=== PATIENT | male | born 1975 | race Caucasian/White ===

== ENCOUNTER 2020-10-23 12:35 | Emergency (ER) | payer OTHER ==
[2020-10-23 12:42] VITALS: BP 144/88; PULSE 86; TEMP 98; BMI 28.2
[2020-10-23] MEDS ORDERED: TETANUS AND DIPHTHERIA TOXOID 0.5 ML DISP.SYRIN IM ONE (13:17)
[2020-10-23] MEDS ORDERED: DIPHTH,PERTUSS(ACELL),TET 0.5 ML DISP.SYRIN IM ONE ×3 (13:29→13:42)
== END 2020-10-23 14:09 | disposition home or self-care (01) ==
LOC: JERFT 12:35
PROC: 0HQFXZZ Repair Right Hand Skin, External Approach (ICD-10-PCS; principal; 2020-10-23)
PROC: 3E0234Z Introduction of Serum, Toxoid and Vaccine into Muscle, Percutaneous Approach (ICD-10-PCS; 2020-10-23)
DX: S61.210A Laceration without foreign body of right index finger without damage to nail, initial encounter (principal)
CPT/HCPCS: 73130-TC-RT-FY; 90471; 90715; 99284-25

== ENCOUNTER 2020-10-27 12:58 | Emergency (ER) | payer OTHER ==
[2020-10-27 13:31] VITALS: BP 138/74; PULSE 88; TEMP 98; BMI 29.0
[2020-10-27] MEDS ORDERED: HALOPERIDOL LACTATE 5 MG/ML IM ONE (13:41)
[2020-10-27] MEDS ORDERED: LORazepam 2 MG TABLET PO ONE (13:44)
[2020-10-27] MEDS ORDERED: LORazepam 2 MG/ML SDV VIAL IM ONE (13:45)
[2020-10-27] MEDS ORDERED: LORazepam 1 MG TABLET ONE (13:49)
[2020-10-27] MEDS ORDERED: HALOPERIDOL LACTATE 5 MG/ML ONE (13:50)
[2020-10-27 15:01] LABS: BASO % 0.5 % (0-2.0); EOS % 2.2 % (0-4.5); HEMOGLOBIN 13.7 GM/dL (11.7-16.9); LYMPH % 16.9 % (8-40); MCHC 34.2 g/dl (32.0-35.9); MEAN CELL VOLUME 87.6 fl (80-96); MEAN PLT VOLUME 8.2 fl (7.5-11.1); MONO % 9.9 % (3.8-10.2); NEUT % 70.5 % (42.8-82.8); PLATELET COUNT 305 10^3/uL (134-434); RBC 4.57 M/mm3 (4.00-5.60); RDW 14.1 % (11.9-15.9); WHITE BLOOD COUNT 6.7 K/mm3 (4.0-10.0)
[2020-10-27 15:18] LABS: CHLORIDE 109 mmol/L (98-107); SODIUM 141 mmol/L (136-145)
[2020-10-27 15:20] LABS: ANION GAP 6 MMOL/L (8-16); BLOOD UREA NITROGEN 18.5 mg/dL (7-18); CALCIUM 9.6 mg/dL (8.5-10.1); CO2 26 mmol/L (21-32); GLUCOSE,RANDOM 92 mg/dL (74-106)
[2020-10-27 15:23] LABS: SGPT/ALT 31 U/L (13-61)
[2020-10-27 15:24] LABS: CREATININE 0.8 mg/dL (0.55-1.3); SGOT/AST 12 U/L (15-37)
[2020-10-27 15:25] LABS: BILIRUBIN,TOTAL 0.3 mg/dL (0.2-1)
[2020-10-27 15:26] LABS: ALK PHOS 72 U/L (45-117)
== END 2020-10-27 18:30 | disposition home or self-care (01) ==
LOC: JER 12:58
PROC: 3E023NZ Introduction of Analgesics, Hypnotics, Sedatives into Muscle, Percutaneous Approach (ICD-10-PCS; principal; 2020-10-27)
PROC: 3E023GC Introduction of Other Therapeutic Substance into Muscle, Percutaneous Approach (ICD-10-PCS; 2020-10-27)
DX: R45.851 Suicidal ideations (principal); R44.0 Auditory hallucinations
CPT/HCPCS: 36415; 80053; 80307; 83735; 85025; 93005; 93010; 99284-25; C9803; U0003; U0005

== ENCOUNTER 2021-05-10 14:43 | Emergency (ER) | payer OTHER ==
[2021-05-10 15:28] VITALS: BP 126/80; PULSE 68; TEMP 98.3; BMI 30.4
[2021-05-10] MEDS ORDERED: ACETAMINOPHEN 500 MG TABLET (FP) PO ONE (16:35)
[2021-05-10] MEDS ORDERED: LIDOCAINE 5% TOPICAL PATCH TP ONE (16:35)
[2021-05-10] MEDS ORDERED: ACETAMINOPHEN 325 MG TABLET (FP) ONE (17:01)
[2021-05-10] MEDS ORDERED: LIDOCAINE 5% TOPICAL PATCH ONE (17:01)
[2021-05-10 17:49] LABS: PH,URINE 5.5 (5.0-8.0); URINE APPEARANCE CLEAR; URINE BILIRUBIN NEGATIVE (NEGATIVE); URINE COLOR YELLOW; URINE GLUCOSE (UA) NEGATIVE (NEGATIVE); URINE KETONE NEGATIVE (NEGATIVE); URINE LEUK ESTERASE NEGATIVE (NEGATIVE); URINE NITRITE NEGATIVE (NEGATIVE); URINE PROTEIN NEGATIVE (NEGATIVE); URINE UROBILINOGEN 0.2 mg/dL (0.2-1.0)
[2021-05-10] MEDS ORDERED: LIDOCAINE PATCH REMOVAL MC SCH (22:00)
== END 2021-05-10 18:05 | disposition home or self-care (01) ==
LOC: JERFT 14:43
DX: S22.39XA Fracture of one rib, unspecified side, initial encounter for closed fracture (principal); W00.0XXA Fall on same level due to ice and snow, initial encounter
CPT/HCPCS: 71046-TC-FY; 71101-TC-LT-FY; 81003; 99283-25

== ENCOUNTER 2023-01-08 17:39 | Inpatient (IN) | payer OTHER ==
[2023-01-08 18:18] VITALS: BMI 27.1
[2023-01-08] MEDS ORDERED: diphenhydrAMINE HCL 25 MG CAPSULE (FP) PO ONE ×2 (19:21→19:35)
[2023-01-08] MEDS ORDERED: MELATONIN 5 MG TABLETS PO SCH (22:00)
[2023-01-08] MEDS ORDERED: NALOXONE HCL (KLOXXADO) 8 MG SPRAY NS PRN (22:17)
[2023-01-08] MEDS ORDERED: hydrOXYzine PAMOATE 25 MG CAPSULE (FP) PO PRN (22:17)
[2023-01-08] MEDS ORDERED: COLLOIDAL OATMEAL 1 BAR EACH TP PRN (22:17)
[2023-01-08] MEDS ORDERED: P-EPHED 60MG/TRIPROLIDI 2.5MG TABLET PO PRN (22:17)
[2023-01-08] MEDS ORDERED: AMMONIUM LACTATE 12% LOTION 225 GM BOTTLE TP PRN (22:17)
[2023-01-08] MEDS ORDERED: POLYETHYLENE GLYCOL (HEALTHYLAX) 3350 17 GM PACKET PO PRN (22:17)
[2023-01-08] MEDS ORDERED: BENZONATATE 200 MG CAPSULE PO PRN (22:17)
[2023-01-08] MEDS ORDERED: LOPERAMIDE HCL 2 MG CAPSULE PO PRN (22:17)
[2023-01-08] MEDS ORDERED: ACETAMINOPHEN 325 MG TABLET (FP) PO PRN (22:17)
[2023-01-08] MEDS ORDERED: BENZOCAINE/MENTHOL (CHLORASEPTIC ) LOZENGE MM PRN (22:17)
[2023-01-08] MEDS ORDERED: IBUPROFEN 600 MG TABLET (FP) PO PRN (22:17)
[2023-01-08] MEDS ORDERED: MAG HYDROX/AL HYDROX/SIMETH 30 ML UNIT-DOSE CUP PO PRN (22:17)
[2023-01-08] MEDS ORDERED: guaiFENesin 600 MG TABLET.ER (FP) PO PRN (22:17)
[2023-01-08] MEDS ORDERED: IBUPROFEN 400 MG TABLET (FP) PO PRN (22:17)
[2023-01-08] MEDS ORDERED: MAGNESIUM HYDROX 2400MG/30ML ORAL SUSPENSION 30 ML CUP PO PRN (22:17)
[2023-01-08] MEDS ORDERED: NALOXONE HCL 0.4 MG/ML VIAL IM PRN (22:17)
[2023-01-09] MEDS: PRENATAL VITAMINS W/ FOLIC ACID TABLET (FP) PO SCH (09:59)
[2023-01-09 10:10] LABS: PH,URINE 6.5 (5.0-8.0); URINE APPEARANCE CLEAR; URINE BILIRUBIN NEGATIVE (NEGATIVE); URINE COLOR YELLOW; URINE GLUCOSE (UA) NEGATIVE (NEGATIVE); URINE KETONE NEGATIVE (NEGATIVE); URINE LEUK ESTERASE NEGATIVE (NEGATIVE); URINE NITRITE NEGATIVE (NEGATIVE); URINE PROTEIN NEGATIVE (NEGATIVE); URINE UROBILINOGEN 0.2 mg/dL (0.2-1.0)
[2023-01-09 10:10] LABS: POTASSIUM 4.2 mmol/L (3.5-5.1)
[2023-01-09 10:14] LABS: HEMATOCRIT 38.7 % (35.4-49); HEMOGLOBIN 13.6 GM/dL (11.7-16.9); MCH 30.3 pg (25.7-33.7); MEAN CELL VOLUME 86.8 fl (80-96); MEAN PLT VOLUME 8.9 fl (7.5-11.1); PLATELET COUNT 302 10^3/uL (134-434); RBC 4.47 M/mm3 (4.00-5.60); WHITE BLOOD COUNT 7.8 K/mm3 (4.0-10.0)
[2023-01-09 10:24] LABS: CALCIUM 9.1 mg/dL (8.5-10.1)
[2023-01-09 10:25] LABS: ALBUMIN 3.5 g/dl (3.4-5.0); BLOOD UREA NITROGEN 19.2 mg/dL (7-18)
[2023-01-09 10:29] LABS: TOT PROT 6.2 g/dl (6.4-8.2)
[2023-01-09 10:30] LABS: BILIRUBIN,TOTAL 0.3 mg/dL (0.2-1)
[2023-01-09] MEDS: MELATONIN 5 MG TABLETS PO SCH (21:36)
[2023-01-09] MEDS: THIAMINE HCL 100 MG TABLET (FP) PO SCH (21:38)
[2023-01-10] MEDS: PRENATAL VITAMINS W/ FOLIC ACID TABLET (FP) PO SCH (10:45)
[2023-01-10] MEDS: MELATONIN 5 MG TABLETS PO SCH (21:06)
[2023-01-10] MEDS: THIAMINE HCL 100 MG TABLET (FP) PO SCH (21:06)
[2023-01-11] MEDS: PRENATAL VITAMINS W/ FOLIC ACID TABLET (FP) PO SCH (09:57)
[2023-01-11] MEDS: MELATONIN 5 MG TABLETS PO SCH (21:13)
[2023-01-11] MEDS: THIAMINE HCL 100 MG TABLET (FP) PO SCH (21:13)
[2023-01-11] MEDS: hydrOXYzine PAMOATE 25 MG CAPSULE (FP) PO PRN (21:14)
[2023-01-12] MEDS: PRENATAL VITAMINS W/ FOLIC ACID TABLET (FP) PO SCH (09:34)
[2023-01-12] MEDS: MELATONIN 5 MG TABLETS PO SCH (21:03)
[2023-01-12] MEDS: THIAMINE HCL 100 MG TABLET (FP) PO SCH (21:03)
[2023-01-12] MEDS: hydrOXYzine PAMOATE 25 MG CAPSULE (FP) PO PRN (21:03)
[2023-01-13] MEDS: PRENATAL VITAMINS W/ FOLIC ACID TABLET (FP) PO SCH (10:05)
[2023-01-13] MEDS: THIAMINE HCL 100 MG TABLET (FP) PO SCH (21:28)
[2023-01-13] MEDS: MELATONIN 5 MG TABLETS PO SCH (21:28)
[2023-01-13] MEDS ORDERED: SUVOREXANT 10 MG TABLET PO PRN (22:00)
[2023-01-14] MEDS: hydrOXYzine PAMOATE 25 MG CAPSULE (FP) PO PRN (00:19)
[2023-01-14] MEDS: PRENATAL VITAMINS W/ FOLIC ACID TABLET (FP) PO SCH (10:21)
[2023-01-14] MEDS: THIAMINE HCL 100 MG TABLET (FP) PO SCH (21:15)
[2023-01-14] MEDS: SUVOREXANT 20 MG TABLET PO PRN (21:15)
[2023-01-15] MEDS: hydrOXYzine PAMOATE 25 MG CAPSULE (FP) PO PRN (01:22)
[2023-01-15] MEDS: PRENATAL VITAMINS W/ FOLIC ACID TABLET (FP) PO SCH (10:26)
[2023-01-15] MEDS ORDERED: DICYCLOMINE HCL 10 MG CAPSULE PO PRN (15:38)
[2023-01-15] MEDS ORDERED: NALOXONE HCL 0.4 MG/ML VIAL IM PRN (15:38)
[2023-01-15] MEDS ORDERED: METHOCARBAMOL 500 MG TABLET PO PRN (15:38)
[2023-01-15] MEDS ORDERED: BENZONATATE 200 MG CAPSULE PO PRN (15:38)
[2023-01-15] MEDS ORDERED: ONDANSETRON *ODT* 4 MG TABLET SL PRN (15:38)
[2023-01-15] MEDS ORDERED: guaiFENesin 600 MG TABLET.ER (FP) PO PRN (15:38)
[2023-01-15] MEDS ORDERED: BUPRENORPHINE HCL 150 MCG FILM BC ONE (16:00)
[2023-01-15] MEDS: NICOTINE 21 MG/24 HOURS TOPICAL PATCH TD SCH (16:26)
[2023-01-15] MEDS: THIAMINE HCL 100 MG TABLET (FP) PO SCH (21:12)
[2023-01-15] MEDS: SUVOREXANT 20 MG TABLET PO PRN (21:13)
[2023-01-15] MEDS: BUPRENORPHINE HCL 150 MCG FILM BC SCH (21:13)
[2023-01-15] MEDS ORDERED: BUPRENORPHINE/NALOXONE 2 MG/0.5 MG FILM PACKET SL SCH (22:00)
[2023-01-16] MEDS: BUPRENORPHINE HCL 150 MCG FILM BC SCH (09:43)
[2023-01-16] MEDS: PRENATAL VITAMINS W/ FOLIC ACID TABLET (FP) PO SCH (09:43)
[2023-01-16] MEDS: NICOTINE 21 MG/24 HOURS TOPICAL PATCH TD SCH (09:44)
[2023-01-16] MEDS: SUVOREXANT 20 MG TABLET PO PRN (21:10)
[2023-01-16] MEDS: THIAMINE HCL 100 MG TABLET (FP) PO SCH (21:10)
[2023-01-16] MEDS: QUEtiapine FUMARATE 100 MG TABLET (FP) PO PRN (21:10)
[2023-01-17] MEDS ORDERED: BUPRENORPHINE HCL 150 MCG FILM BC SCH (10:00)
[2023-01-17] MEDS: PRENATAL VITAMINS W/ FOLIC ACID TABLET (FP) PO SCH (10:14)
[2023-01-17] MEDS: BUPRENORPHINE HCL 150 MCG, BUPRENORPHINE HCL 75 MCG BC SCH ×2 (10:15→21:09)
[2023-01-17] MEDS: NICOTINE 21 MG/24 HOURS TOPICAL PATCH TD SCH (10:15)
[2023-01-17] MEDS: QUEtiapine FUMARATE 100 MG TABLET (FP) PO PRN (21:08)
[2023-01-17] MEDS: THIAMINE HCL 100 MG TABLET (FP) PO SCH (21:08)
[2023-01-17] MEDS: SUVOREXANT 20 MG TABLET PO PRN (21:10)
[2023-01-18] MEDS: PRENATAL VITAMINS W/ FOLIC ACID TABLET (FP) PO SCH (09:36)
[2023-01-18] MEDS: BUPRENORPHINE HCL 450 MCG FILM BC SCH ×2 (09:36→21:04)
[2023-01-18] MEDS: NICOTINE 21 MG/24 HOURS TOPICAL PATCH TD SCH (09:37)
[2023-01-18] MEDS: QUEtiapine FUMARATE 100 MG TABLET (FP) PO PRN (21:03)
[2023-01-18] MEDS: THIAMINE HCL 100 MG TABLET (FP) PO SCH (21:03)
[2023-01-18] MEDS: SUVOREXANT 20 MG TABLET PO PRN (21:04)
[2023-01-19] MEDS: NICOTINE 21 MG/24 HOURS TOPICAL PATCH TD SCH (09:36)
[2023-01-19] MEDS: PRENATAL VITAMINS W/ FOLIC ACID TABLET (FP) PO SCH (09:36)
[2023-01-19] MEDS: BUPRENORPHINE/NALOXONE 2 MG/0.5 MG FILM PACKET SL SCH ×2 (09:37→21:28)
[2023-01-19] MEDS ORDERED: BUPRENORPHINE/NALOXONE 2 MG/0.5 MG FILM PACKET SL SCH (10:00)
[2023-01-19] MEDS: NICOTINE POLACRILEX 4 MG GUM BUC PRN ×2 (18:08→20:47)
[2023-01-19] MEDS: THIAMINE HCL 100 MG TABLET (FP) PO SCH (21:28)
[2023-01-19] MEDS: SUVOREXANT 20 MG TABLET PO PRN (21:28)
[2023-01-20] MEDS: hydrOXYzine PAMOATE 25 MG CAPSULE (FP) PO PRN ×2 (00:30→10:26)
[2023-01-20] MEDS: QUEtiapine FUMARATE 100 MG TABLET (FP) PO PRN ×2 (00:31→21:14)
[2023-01-20 06:39] VITALS: TEMP 97.5
[2023-01-20] MEDS: NICOTINE 21 MG/24 HOURS TOPICAL PATCH TD SCH (10:25)
[2023-01-20] MEDS: PRENATAL VITAMINS W/ FOLIC ACID TABLET (FP) PO SCH (10:25)
[2023-01-20] MEDS: BUPRENORPHINE/NALOXONE 2 MG/0.5 MG FILM PACKET SL SCH ×2 (10:26→21:15)
[2023-01-20] MEDS: NICOTINE POLACRILEX 4 MG GUM BUC PRN ×2 (13:06→18:34)
[2023-01-20] MEDS: THIAMINE HCL 100 MG TABLET (FP) PO SCH (21:13)
[2023-01-20] MEDS: SUVOREXANT 20 MG TABLET PO PRN (21:13)
[2023-01-21] MEDS: hydrOXYzine PAMOATE 25 MG CAPSULE (FP) PO PRN (03:26)
[2023-01-21 06:42] VITALS: BP 101/61; PULSE 65; RESP 18
[2023-01-21] MEDS: PRENATAL VITAMINS W/ FOLIC ACID TABLET (FP) PO SCH (10:27)
[2023-01-21] MEDS: BUPRENORPHINE/NALOXONE 2 MG/0.5 MG FILM PACKET SL SCH ×2 (10:27→21:21)
[2023-01-21] MEDS: NICOTINE 21 MG/24 HOURS TOPICAL PATCH TD SCH (10:27)
[2023-01-21] MEDS: SUVOREXANT 20 MG TABLET PO PRN (21:21)
[2023-01-21] MEDS: THIAMINE HCL 100 MG TABLET (FP) PO SCH (21:21)
[2023-01-21] MEDS: QUEtiapine FUMARATE 100 MG TABLET (FP) PO PRN (21:22)
[2023-01-21] MEDS: NICOTINE POLACRILEX 4 MG GUM BUC PRN (22:37)
== END 2023-01-22 01:25 | disposition short-term general hospital (02) | DRG 772 ==
LOC: YASAS 17:39 → Y3W 19:27
PROVIDERS: ADMIT Allergy & Immunology; ATTEND Psychiatry & Neurology Pain Medicine
PROC: HZ42ZZZ Group Counseling for Substance Abuse Treatment, Cognitive-Behavioral (ICD-10-PCS; principal; 2023-01-08)
DX: F14.20 Cocaine dependence, uncomplicated (principal); F11.20 Opioid dependence, uncomplicated; F17.210 Nicotine dependence, cigarettes, uncomplicated; F19.282 Other psychoactive substance dependence with psychoactive substance-induced sleep disorder; F19.24 Other psychoactive substance dependence with psychoactive substance-induced mood disorder; G47.00 Insomnia, unspecified
CPT/HCPCS: 36415; 80053; 81003; 85027; 86780; 87635

== ENCOUNTER 2023-04-20 14:52 | Inpatient (IN) | payer OTHER ==
[2023-04-20 15:32] VITALS: BMI 27.7
[2023-04-20] MEDS ORDERED: IBUPROFEN 400 MG TABLET (FP) PO PRN (19:47)
[2023-04-20] MEDS ORDERED: BENZOCAINE/MENTHOL (CHLORASEPTIC ) LOZENGE MM PRN (19:47)
[2023-04-20] MEDS ORDERED: IBUPROFEN 600 MG TABLET (FP) PO PRN (19:47)
[2023-04-20] MEDS ORDERED: MAG HYDROX/AL HYDROX/SIMETH 30 ML UNIT-DOSE CUP PO PRN (19:47)
[2023-04-20] MEDS ORDERED: BENZONATATE 200 MG CAPSULE PO PRN (19:47)
[2023-04-20] MEDS ORDERED: guaiFENesin 600 MG TABLET.ER (FP) PO PRN (19:47)
[2023-04-20] MEDS ORDERED: LOPERAMIDE HCL 2 MG CAPSULE PO PRN (19:47)
[2023-04-20] MEDS ORDERED: ACETAMINOPHEN 325 MG TABLET (FP) PO PRN (19:47)
[2023-04-20] MEDS ORDERED: hydrOXYzine PAMOATE 25 MG CAPSULE (FP) PO PRN (19:47)
[2023-04-20] MEDS ORDERED: P-EPHED 60MG/TRIPROLIDI 2.5MG TABLET PO PRN (19:47)
[2023-04-20] MEDS: THIAMINE HCL 100 MG TABLET (FP) PO SCH (21:09)
[2023-04-20] MEDS ORDERED: MELATONIN 5 MG TABLETS PO SCH (22:00)
[2023-04-21] MEDS: NICOTINE POLACRILEX 2 MG GUM BUC PRN (09:00)
[2023-04-21] MEDS ORDERED: hydrOXYzine PAMOATE 25 MG CAPSULE (FP) PO PRN (10:00)
[2023-04-21] MEDS: PRENATAL VITAMINS W/ FOLIC ACID TABLET (FP) PO SCH (10:22)
[2023-04-21] MEDS: BUPRENORPHINE/NALOXONE 4 MG/1 MG FILM PACKET SL SCH ×2 (10:22→21:22)
[2023-04-21] MEDS: ARIPiprazole 5 MG TABLET PO SCH (10:53)
[2023-04-21 11:41] LABS: POTASSIUM 4.1 mmol/L (3.5-5.1)
[2023-04-21 11:43] LABS: ALBUMIN 3.6 g/dl (3.4-5.0); CALCIUM 8.9 mg/dL (8.5-10.1)
[2023-04-21 11:44] LABS: HEMATOCRIT 37.7 % (35.4-49); HEMOGLOBIN 12.6 GM/dL (11.7-16.9); MCH 29.3 pg (25.7-33.7); MCHC 33.3 g/dl (32.0-35.9); MEAN CELL VOLUME 88.1 fl (80-96); MEAN PLT VOLUME 8.6 fl (7.5-11.1); PLATELET COUNT 309 10^3/uL (134-434); RBC 4.28 M/mm3 (4.00-5.60); RDW 13.8 % (11.9-15.9); WHITE BLOOD COUNT 7.2 K/mm3 (4.0-10.0)
[2023-04-21 11:48] LABS: BILIRUBIN,TOTAL 0.5 mg/dL (0.2-1); TOT PROT 6.5 g/dl (6.4-8.2)
[2023-04-21 12:15] LABS: SYPHILIS W/ RPR CONF NON-REACTIVE (NONREACTIVE)
[2023-04-21] MEDS: MIRTAZAPINE 15 MG TABLET (FP) PO SCH (21:21)
[2023-04-21] MEDS: THIAMINE HCL 100 MG TABLET (FP) PO SCH (21:21)
[2023-04-21] MEDS: SUVOREXANT 10 MG TABLET PO PRN (21:21)
[2023-04-22] MEDS: ARIPiprazole 5 MG TABLET PO SCH (10:14)
[2023-04-22] MEDS: BUPRENORPHINE/NALOXONE 4 MG/1 MG FILM PACKET SL SCH ×2 (10:14→21:05)
[2023-04-22] MEDS: PRENATAL VITAMINS W/ FOLIC ACID TABLET (FP) PO SCH (10:15)
[2023-04-22] MEDS: MIRTAZAPINE 15 MG TABLET (FP) PO SCH (21:04)
[2023-04-22] MEDS: SUVOREXANT 10 MG TABLET PO PRN (21:04)
[2023-04-22] MEDS: THIAMINE HCL 100 MG TABLET (FP) PO SCH (21:05)
[2023-04-23] MEDS: PRENATAL VITAMINS W/ FOLIC ACID TABLET (FP) PO SCH (10:05)
[2023-04-23] MEDS: ARIPiprazole 5 MG TABLET PO SCH (10:05)
[2023-04-23] MEDS: BUPRENORPHINE/NALOXONE 4 MG/1 MG FILM PACKET SL SCH ×2 (10:06→21:00)
[2023-04-23] MEDS: NICOTINE POLACRILEX 2 MG GUM BUC PRN ×2 (12:02→18:56)
[2023-04-23 13:35] LABS: PH,URINE 5.5 (5.0-8.0); URINE APPEARANCE CLEAR; URINE BILIRUBIN NEGATIVE (NEGATIVE); URINE COLOR YELLOW; URINE GLUCOSE (UA) NEGATIVE (NEGATIVE); URINE KETONE NEGATIVE (NEGATIVE); URINE LEUK ESTERASE NEGATIVE (NEGATIVE); URINE NITRITE NEGATIVE (NEGATIVE); URINE PROTEIN NEGATIVE (NEGATIVE); URINE UROBILINOGEN 0.2 mg/dL (0.2-1.0)
[2023-04-23] MEDS: MIRTAZAPINE 15 MG TABLET (FP) PO SCH (21:00)
[2023-04-23] MEDS: THIAMINE HCL 100 MG TABLET (FP) PO SCH (21:01)
[2023-04-23] MEDS: SUVOREXANT 10 MG TABLET PO PRN (21:23)
[2023-04-24] MEDS: BUPRENORPHINE/NALOXONE 4 MG/1 MG FILM PACKET SL SCH ×2 (10:17→21:07)
[2023-04-24] MEDS: PRENATAL VITAMINS W/ FOLIC ACID TABLET (FP) PO SCH (10:17)
[2023-04-24] MEDS: ARIPiprazole 5 MG TABLET PO SCH ×2 (10:20→11:10)
[2023-04-24] MEDS: NICOTINE POLACRILEX 2 MG GUM BUC PRN ×2 (14:24→18:34)
[2023-04-24] MEDS: MIRTAZAPINE 15 MG TABLET (FP) PO SCH (21:06)
[2023-04-24] MEDS: SUVOREXANT 10 MG TABLET PO PRN (21:06)
[2023-04-24] MEDS: THIAMINE HCL 100 MG TABLET (FP) PO SCH (21:06)
[2023-04-24] MEDS ORDERED: SUVOREXANT 10 MG TABLET PO PRN (22:00)
[2023-04-25] MEDS: NICOTINE POLACRILEX 2 MG GUM BUC PRN ×3 (05:58→18:44)
[2023-04-25] MEDS: BUPRENORPHINE/NALOXONE 4 MG/1 MG FILM PACKET SL SCH ×2 (09:43→21:21)
[2023-04-25] MEDS: ARIPiprazole 5 MG TABLET PO SCH (09:44)
[2023-04-25] MEDS: PRENATAL VITAMINS W/ FOLIC ACID TABLET (FP) PO SCH (09:44)
[2023-04-25] MEDS: SUVOREXANT 10 MG TABLET PO PRN (21:20)
[2023-04-25] MEDS: THIAMINE HCL 100 MG TABLET (FP) PO SCH (21:20)
[2023-04-25] MEDS: MIRTAZAPINE 15 MG TABLET (FP) PO SCH (21:20)
[2023-04-26] MEDS: PRENATAL VITAMINS W/ FOLIC ACID TABLET (FP) PO SCH (09:35)
[2023-04-26] MEDS: BUPRENORPHINE/NALOXONE 4 MG/1 MG FILM PACKET SL SCH ×2 (09:36→21:07)
[2023-04-26] MEDS: ARIPiprazole 5 MG TABLET PO SCH (09:36)
[2023-04-26] MEDS: NICOTINE POLACRILEX 2 MG GUM BUC PRN ×4 (09:39→21:11)
[2023-04-26] MEDS: COLLOIDAL OATMEAL 1 BAR EACH TP PRN (15:54)
[2023-04-26] MEDS: SUVOREXANT 10 MG TABLET PO PRN (21:06)
[2023-04-26] MEDS: MIRTAZAPINE 15 MG TABLET (FP) PO SCH (21:06)
[2023-04-26] MEDS: THIAMINE HCL 100 MG TABLET (FP) PO SCH (21:07)
[2023-04-27] MEDS: PRENATAL VITAMINS W/ FOLIC ACID TABLET (FP) PO SCH (09:53)
[2023-04-27] MEDS: BUPRENORPHINE/NALOXONE 4 MG/1 MG FILM PACKET SL SCH ×2 (09:54→21:06)
[2023-04-27] MEDS: ARIPiprazole 5 MG TABLET PO SCH (09:54)
[2023-04-27] MEDS: NICOTINE POLACRILEX 2 MG GUM BUC PRN ×4 (10:19→20:16)
[2023-04-27] MEDS: SUVOREXANT 10 MG TABLET PO PRN (21:05)
[2023-04-27] MEDS: THIAMINE HCL 100 MG TABLET (FP) PO SCH (21:06)
[2023-04-27] MEDS: MIRTAZAPINE 15 MG TABLET (FP) PO SCH (21:06)
[2023-04-28] MEDS: NICOTINE POLACRILEX 2 MG GUM BUC PRN ×4 (06:04→21:03)
[2023-04-28] MEDS: PRENATAL VITAMINS W/ FOLIC ACID TABLET (FP) PO SCH (10:15)
[2023-04-28] MEDS: ARIPiprazole 5 MG TABLET PO SCH (10:15)
[2023-04-28] MEDS: BUPRENORPHINE/NALOXONE 4 MG/1 MG FILM PACKET SL SCH ×2 (10:17→21:02)
[2023-04-28] MEDS: MIRTAZAPINE 15 MG TABLET (FP) PO SCH (21:02)
[2023-04-28] MEDS: THIAMINE HCL 100 MG TABLET (FP) PO SCH (21:02)
[2023-04-28] MEDS: SUVOREXANT 10 MG TABLET PO PRN (21:02)
[2023-04-29] MEDS: NICOTINE POLACRILEX 2 MG GUM BUC PRN ×2 (06:01→10:37)
[2023-04-29] MEDS: BUPRENORPHINE/NALOXONE 4 MG/1 MG FILM PACKET SL SCH (09:47)
[2023-04-29] MEDS: PRENATAL VITAMINS W/ FOLIC ACID TABLET (FP) PO SCH (09:47)
[2023-04-29] MEDS: ARIPiprazole 5 MG TABLET PO SCH (09:47)
[2023-04-29] MEDS ORDERED: NICOTINE POLACRILEX 2 MG GUM BC SCH (11:15)
[2023-04-29] MEDS ORDERED: DOCUSATE SODIUM 100 MG CAPSULE (FP) PO PRN (11:22)
[2023-04-29] MEDS: BISMUTH SUBSALICYLATE 262 MG/15 ML BTL PO SCH (13:13)
[2023-04-29] MEDS: MAGNESIUM HYDROX 2400MG/30ML ORAL SUSPENSION 30 ML CUP PO PRN (13:14)
[2023-04-29] MEDS: NICOTINE POLACRILEX 2 MG GUM BC PRN ×2 (16:22→20:44)
[2023-04-29] MEDS: THIAMINE HCL 100 MG TABLET (FP) PO SCH (21:15)
[2023-04-29] MEDS: MIRTAZAPINE 15 MG TABLET (FP) PO SCH (21:15)
[2023-04-29] MEDS: BUPRENORPHINE/NALOXONE 8 MG/2 MG FILM PACKET SL SCH (21:16)
[2023-04-30] MEDS: PRENATAL VITAMINS W/ FOLIC ACID TABLET (FP) PO SCH (09:58)
[2023-04-30] MEDS: ARIPiprazole 5 MG TABLET PO SCH (09:58)
[2023-04-30] MEDS: BUPRENORPHINE/NALOXONE 8 MG/2 MG FILM PACKET SL SCH ×2 (09:58→21:19)
[2023-04-30] MEDS: BISMUTH SUBSALICYLATE 262 MG/15 ML BTL PO SCH (09:59)
[2023-04-30] MEDS: MAGNESIUM HYDROX 2400MG/30ML ORAL SUSPENSION 30 ML CUP PO PRN (10:03)
[2023-04-30] MEDS: NICOTINE POLACRILEX 2 MG GUM BUC PRN ×2 (10:03→13:41)
[2023-04-30] MEDS: POLYETHYLENE GLYCOL (HEALTHYLAX) 3350 17 GM PACKET PO PRN (19:55)
[2023-04-30] MEDS: NICOTINE POLACRILEX 2 MG GUM BC PRN (19:56)
[2023-04-30] MEDS: MIRTAZAPINE 15 MG TABLET (FP) PO SCH (21:17)
[2023-04-30] MEDS: THIAMINE HCL 100 MG TABLET (FP) PO SCH (21:19)
[2023-05-01] MEDS: NICOTINE POLACRILEX 2 MG GUM BUC PRN ×4 (05:59→21:31)
[2023-05-01] MEDS: BISMUTH SUBSALICYLATE 262 MG/15 ML BTL PO SCH (09:55)
[2023-05-01] MEDS: BUPRENORPHINE/NALOXONE 8 MG/2 MG FILM PACKET SL SCH ×2 (09:55→21:30)
[2023-05-01] MEDS: ARIPiprazole 5 MG TABLET PO SCH (09:55)
[2023-05-01] MEDS: PRENATAL VITAMINS W/ FOLIC ACID TABLET (FP) PO SCH (09:55)
[2023-05-01] MEDS: NICOTINE POLACRILEX 2 MG GUM BC PRN (09:55)
[2023-05-01] MEDS: THIAMINE HCL 100 MG TABLET (FP) PO SCH (21:29)
[2023-05-01] MEDS: MIRTAZAPINE 15 MG TABLET (FP) PO SCH (21:29)
[2023-05-02] MEDS: NICOTINE POLACRILEX 2 MG GUM BUC PRN ×3 (03:19→20:42)
[2023-05-02] MEDS: NICOTINE POLACRILEX 2 MG GUM BC PRN ×2 (06:57→16:16)
[2023-05-02] MEDS: ARIPiprazole 5 MG TABLET PO SCH (10:10)
[2023-05-02] MEDS: BUPRENORPHINE/NALOXONE 8 MG/2 MG FILM PACKET SL SCH ×2 (10:11→21:05)
[2023-05-02] MEDS: BISMUTH SUBSALICYLATE 262 MG/15 ML BTL PO SCH (10:11)
[2023-05-02] MEDS: PRENATAL VITAMINS W/ FOLIC ACID TABLET (FP) PO SCH (10:11)
[2023-05-02] MEDS: DOCUSATE SODIUM 100 MG CAPSULE (FP) PO SCH (21:05)
[2023-05-02] MEDS: MIRTAZAPINE 15 MG TABLET (FP) PO SCH (21:05)
[2023-05-02] MEDS: THIAMINE HCL 100 MG TABLET (FP) PO SCH (21:05)
[2023-05-03] MEDS: NICOTINE POLACRILEX 2 MG GUM BUC PRN ×3 (06:05→21:19)
[2023-05-03] MEDS: POLYETHYLENE GLYCOL (HEALTHYLAX) 3350 17 GM PACKET PO PRN (06:05)
[2023-05-03] MEDS: BUPRENORPHINE/NALOXONE 8 MG/2 MG FILM PACKET SL SCH ×2 (09:33→21:19)
[2023-05-03] MEDS: ARIPiprazole 5 MG TABLET PO SCH (09:33)
[2023-05-03] MEDS: PRENATAL VITAMINS W/ FOLIC ACID TABLET (FP) PO SCH (09:33)
[2023-05-03] MEDS: DOCUSATE SODIUM 100 MG CAPSULE (FP) PO SCH ×2 (09:33→21:19)
[2023-05-03] MEDS: BISMUTH SUBSALICYLATE 262 MG/15 ML BTL PO SCH (09:34)
[2023-05-03] MEDS: NICOTINE POLACRILEX 2 MG GUM BC PRN (12:46)
[2023-05-03] MEDS: THIAMINE HCL 100 MG TABLET (FP) PO SCH (21:19)
[2023-05-03] MEDS: MIRTAZAPINE 15 MG TABLET (FP) PO SCH (21:19)
[2023-05-04] MEDS: NICOTINE POLACRILEX 2 MG GUM BUC PRN ×3 (06:22→13:34)
[2023-05-04] MEDS: ARIPiprazole 5 MG TABLET PO SCH (10:12)
[2023-05-04] MEDS: PRENATAL VITAMINS W/ FOLIC ACID TABLET (FP) PO SCH (10:12)
[2023-05-04] MEDS: BUPRENORPHINE/NALOXONE 8 MG/2 MG FILM PACKET SL SCH ×2 (10:13→21:28)
[2023-05-04] MEDS: BISMUTH SUBSALICYLATE 262 MG/15 ML BTL PO SCH (10:15)
[2023-05-04] MEDS: DOCUSATE SODIUM 100 MG CAPSULE (FP) PO SCH ×2 (10:15→21:28)
[2023-05-04] MEDS: NICOTINE POLACRILEX 2 MG GUM BC PRN ×2 (16:41→19:41)
[2023-05-04] MEDS: MIRTAZAPINE 15 MG TABLET (FP) PO SCH (21:28)
[2023-05-04] MEDS: THIAMINE HCL 100 MG TABLET (FP) PO SCH (22:45)
[2023-05-05] MEDS: POLYETHYLENE GLYCOL (HEALTHYLAX) 3350 17 GM PACKET PO PRN (06:04)
[2023-05-05] MEDS: NICOTINE POLACRILEX 2 MG GUM BUC PRN ×3 (06:05→13:25)
[2023-05-05] MEDS: BUPRENORPHINE/NALOXONE 8 MG/2 MG FILM PACKET SL SCH ×2 (10:14→21:05)
[2023-05-05] MEDS: BISMUTH SUBSALICYLATE 262 MG/15 ML BTL PO SCH (10:14)
[2023-05-05] MEDS: ARIPiprazole 5 MG TABLET PO SCH (10:14)
[2023-05-05] MEDS: DOCUSATE SODIUM 100 MG CAPSULE (FP) PO SCH ×2 (10:14→21:04)
[2023-05-05] MEDS: PRENATAL VITAMINS W/ FOLIC ACID TABLET (FP) PO SCH (10:15)
[2023-05-05] MEDS: NICOTINE POLACRILEX 2 MG GUM BC PRN (18:31)
[2023-05-05] MEDS: MIRTAZAPINE 15 MG TABLET (FP) PO SCH (21:04)
[2023-05-05] MEDS: THIAMINE HCL 100 MG TABLET (FP) PO SCH (21:06)
[2023-05-06] MEDS: NICOTINE POLACRILEX 2 MG GUM BUC PRN ×4 (06:05→16:55)
[2023-05-06] MEDS: DOCUSATE SODIUM 100 MG CAPSULE (FP) PO SCH ×2 (09:33→21:09)
[2023-05-06] MEDS: BISMUTH SUBSALICYLATE 262 MG/15 ML BTL PO SCH (09:33)
[2023-05-06] MEDS: PRENATAL VITAMINS W/ FOLIC ACID TABLET (FP) PO SCH (09:33)
[2023-05-06] MEDS: BUPRENORPHINE/NALOXONE 8 MG/2 MG FILM PACKET SL SCH ×2 (09:33→21:10)
[2023-05-06] MEDS: ARIPiprazole 5 MG TABLET PO SCH (09:33)
[2023-05-06] MEDS: MIRTAZAPINE 15 MG TABLET (FP) PO SCH (21:09)
[2023-05-06] MEDS: THIAMINE HCL 100 MG TABLET (FP) PO SCH (21:10)
[2023-05-07] MEDS: POLYETHYLENE GLYCOL (HEALTHYLAX) 3350 17 GM PACKET PO PRN (06:04)
[2023-05-07] MEDS: NICOTINE POLACRILEX 2 MG GUM BUC PRN ×3 (06:04→12:07)
[2023-05-07] MEDS: PRENATAL VITAMINS W/ FOLIC ACID TABLET (FP) PO SCH (09:28)
[2023-05-07] MEDS: BISMUTH SUBSALICYLATE 262 MG/15 ML BTL PO SCH (09:28)
[2023-05-07] MEDS: ARIPiprazole 5 MG TABLET PO SCH (09:28)
[2023-05-07] MEDS: DOCUSATE SODIUM 100 MG CAPSULE (FP) PO SCH ×2 (09:28→21:16)
[2023-05-07] MEDS: BUPRENORPHINE/NALOXONE 8 MG/2 MG FILM PACKET SL SCH ×2 (09:28→21:16)
[2023-05-07] MEDS: NICOTINE POLACRILEX 2 MG GUM BC PRN ×2 (16:58→21:16)
[2023-05-07] MEDS: MIRTAZAPINE 15 MG TABLET (FP) PO SCH (21:16)
[2023-05-07] MEDS: THIAMINE HCL 100 MG TABLET (FP) PO SCH (22:13)
[2023-05-08] MEDS: POLYETHYLENE GLYCOL (HEALTHYLAX) 3350 17 GM PACKET PO PRN (06:05)
[2023-05-08] MEDS: NICOTINE POLACRILEX 2 MG GUM BUC PRN ×6 (06:06→21:13)
[2023-05-08] MEDS: PRENATAL VITAMINS W/ FOLIC ACID TABLET (FP) PO SCH (09:34)
[2023-05-08] MEDS: BISMUTH SUBSALICYLATE 262 MG/15 ML BTL PO SCH (09:34)
[2023-05-08] MEDS: DOCUSATE SODIUM 100 MG CAPSULE (FP) PO SCH ×2 (09:34→21:12)
[2023-05-08] MEDS: ARIPiprazole 5 MG TABLET PO SCH (09:34)
[2023-05-08] MEDS: NICOTINE POLACRILEX 2 MG GUM BC PRN (09:35)
[2023-05-08] MEDS: BUPRENORPHINE/NALOXONE 8 MG/2 MG FILM PACKET SL SCH ×2 (09:35→21:12)
[2023-05-08] MEDS: THIAMINE HCL 100 MG TABLET (FP) PO SCH (21:12)
[2023-05-08] MEDS: MIRTAZAPINE 15 MG TABLET (FP) PO SCH (21:12)
[2023-05-09] MEDS: POLYETHYLENE GLYCOL (HEALTHYLAX) 3350 17 GM PACKET PO PRN (06:07)
[2023-05-09] MEDS: NICOTINE POLACRILEX 2 MG GUM BUC PRN ×6 (06:08→21:11)
[2023-05-09] MEDS: ARIPiprazole 5 MG TABLET PO SCH (09:56)
[2023-05-09] MEDS: PRENATAL VITAMINS W/ FOLIC ACID TABLET (FP) PO SCH (09:56)
[2023-05-09] MEDS: BUPRENORPHINE/NALOXONE 8 MG/2 MG FILM PACKET SL SCH ×2 (09:56→21:10)
[2023-05-09] MEDS: BISMUTH SUBSALICYLATE 262 MG/15 ML BTL PO SCH (09:57)
[2023-05-09] MEDS: DOCUSATE SODIUM 100 MG CAPSULE (FP) PO SCH ×2 (09:57→21:09)
[2023-05-09] MEDS: MIRTAZAPINE 15 MG TABLET (FP) PO SCH (21:09)
[2023-05-09] MEDS: THIAMINE HCL 100 MG TABLET (FP) PO SCH (21:09)
[2023-05-10] MEDS: POLYETHYLENE GLYCOL (HEALTHYLAX) 3350 17 GM PACKET PO PRN (06:13)
[2023-05-10] MEDS: NICOTINE POLACRILEX 2 MG GUM BUC PRN ×6 (06:14→21:31)
[2023-05-10] MEDS: PRENATAL VITAMINS W/ FOLIC ACID TABLET (FP) PO SCH (09:37)
[2023-05-10] MEDS: ARIPiprazole 5 MG TABLET PO SCH (09:37)
[2023-05-10] MEDS: BISMUTH SUBSALICYLATE 262 MG/15 ML BTL PO SCH (09:37)
[2023-05-10] MEDS: BUPRENORPHINE/NALOXONE 8 MG/2 MG FILM PACKET SL SCH ×2 (09:37→21:30)
[2023-05-10] MEDS: DOCUSATE SODIUM 100 MG CAPSULE (FP) PO SCH ×2 (09:37→21:30)
[2023-05-10] MEDS: COLLOIDAL OATMEAL 1 BAR EACH TP PRN (10:31)
[2023-05-10] MEDS: THIAMINE HCL 100 MG TABLET (FP) PO SCH (21:30)
[2023-05-10] MEDS: MIRTAZAPINE 15 MG TABLET (FP) PO SCH (21:30)
[2023-05-11] MEDS: NICOTINE POLACRILEX 2 MG GUM BUC PRN ×5 (06:21→21:44)
[2023-05-11] MEDS: POLYETHYLENE GLYCOL (HEALTHYLAX) 3350 17 GM PACKET PO PRN (06:21)
[2023-05-11] MEDS: BISMUTH SUBSALICYLATE 262 MG/15 ML BTL PO SCH (09:59)
[2023-05-11] MEDS: BUPRENORPHINE/NALOXONE 8 MG/2 MG FILM PACKET SL SCH ×2 (09:59→21:10)
[2023-05-11] MEDS: PRENATAL VITAMINS W/ FOLIC ACID TABLET (FP) PO SCH (09:59)
[2023-05-11] MEDS: ARIPiprazole 5 MG TABLET PO SCH (09:59)
[2023-05-11] MEDS: DOCUSATE SODIUM 100 MG CAPSULE (FP) PO SCH ×2 (09:59→21:11)
[2023-05-11] MEDS: MIRTAZAPINE 15 MG TABLET (FP) PO SCH (21:11)
[2023-05-11] MEDS: THIAMINE HCL 100 MG TABLET (FP) PO SCH (21:11)
[2023-05-12] MEDS: POLYETHYLENE GLYCOL (HEALTHYLAX) 3350 17 GM PACKET PO PRN (05:58)
[2023-05-12] MEDS: NICOTINE POLACRILEX 2 MG GUM BUC PRN ×5 (05:58→17:00)
[2023-05-12] MEDS: ARIPiprazole 5 MG TABLET PO SCH (09:47)
[2023-05-12] MEDS: DOCUSATE SODIUM 100 MG CAPSULE (FP) PO SCH ×2 (09:47→21:17)
[2023-05-12] MEDS: PRENATAL VITAMINS W/ FOLIC ACID TABLET (FP) PO SCH (09:47)
[2023-05-12] MEDS: BUPRENORPHINE/NALOXONE 8 MG/2 MG FILM PACKET SL SCH ×2 (09:47→21:18)
[2023-05-12] MEDS: BISMUTH SUBSALICYLATE 262 MG/15 ML BTL PO SCH (10:31)
[2023-05-12] MEDS: MIRTAZAPINE 15 MG TABLET (FP) PO SCH (21:17)
[2023-05-12] MEDS: THIAMINE HCL 100 MG TABLET (FP) PO SCH (21:17)
[2023-05-13] MEDS: NICOTINE POLACRILEX 2 MG GUM BUC PRN ×6 (05:59→21:14)
[2023-05-13] MEDS: POLYETHYLENE GLYCOL (HEALTHYLAX) 3350 17 GM PACKET PO PRN (05:59)
[2023-05-13 07:22] VITALS: TEMP 97.5
[2023-05-13] MEDS: ARIPiprazole 5 MG TABLET PO SCH (09:56)
[2023-05-13] MEDS: BISMUTH SUBSALICYLATE 262 MG/15 ML BTL PO SCH (09:56)
[2023-05-13] MEDS: BUPRENORPHINE/NALOXONE 8 MG/2 MG FILM PACKET SL SCH ×2 (09:56→21:13)
[2023-05-13] MEDS: PRENATAL VITAMINS W/ FOLIC ACID TABLET (FP) PO SCH (09:56)
[2023-05-13] MEDS: DOCUSATE SODIUM 100 MG CAPSULE (FP) PO SCH ×2 (09:57→21:12)
[2023-05-13] MEDS: MIRTAZAPINE 15 MG TABLET (FP) PO SCH (21:12)
[2023-05-13] MEDS: THIAMINE HCL 100 MG TABLET (FP) PO SCH (21:13)
[2023-05-14] MEDS: NICOTINE POLACRILEX 2 MG GUM BUC PRN ×5 (05:56→15:01)
[2023-05-14] MEDS: POLYETHYLENE GLYCOL (HEALTHYLAX) 3350 17 GM PACKET PO PRN (05:56)
[2023-05-14 09:26] VITALS: BP 124/72; PULSE 75; RESP 18
[2023-05-14] MEDS: BUPRENORPHINE/NALOXONE 8 MG/2 MG FILM PACKET SL SCH (09:41)
[2023-05-14] MEDS: BISMUTH SUBSALICYLATE 262 MG/15 ML BTL PO SCH (09:41)
[2023-05-14] MEDS: DOCUSATE SODIUM 100 MG CAPSULE (FP) PO SCH (09:41)
[2023-05-14] MEDS: ARIPiprazole 5 MG TABLET PO SCH (09:41)
[2023-05-14] MEDS: PRENATAL VITAMINS W/ FOLIC ACID TABLET (FP) PO SCH (09:44)
== END 2023-05-14 15:34 | disposition home or self-care (01) | DRG 772 ==
LOC: YASAS 14:52 → Y3W 20:02
PROVIDERS: ADMIT Allergy & Immunology; ATTEND Psychiatry & Neurology Pain Medicine
PROC: HZ42ZZZ Group Counseling for Substance Abuse Treatment, Cognitive-Behavioral (ICD-10-PCS; principal; 2023-04-20)
DX: F14.20 Cocaine dependence, uncomplicated (principal); F11.20 Opioid dependence, uncomplicated; F12.20 Cannabis dependence, uncomplicated; F17.210 Nicotine dependence, cigarettes, uncomplicated; F19.282 Other psychoactive substance dependence with psychoactive substance-induced sleep disorder; F19.24 Other psychoactive substance dependence with psychoactive substance-induced mood disorder; F20.9 Schizophrenia, unspecified; F32.A Depression, unspecified; Z86.59 Personal history of other mental and behavioral disorders
CPT/HCPCS: 36415; 80053; 81003; 82962; 85027; 86780; 86803; 87635

== ENCOUNTER 2023-07-24 15:33 | Inpatient (IN) | payer OTHER ==
[2023-07-24 17:17] VITALS: BMI 29.5
[2023-07-24] MEDS ORDERED: BACITRACIN 0.9 GM PACKET TP PRN (18:43)
[2023-07-24] MEDS ORDERED: MAG HYDROX/AL HYDROX/SIMETH 30 ML UNIT-DOSE CUP PO PRN (19:19)
[2023-07-24] MEDS ORDERED: guaiFENesin 600 MG TABLET.ER (FP) PO PRN (19:19)
[2023-07-24] MEDS ORDERED: POLYETHYLENE GLYCOL (HEALTHYLAX) 3350 17 GM PACKET PO PRN (19:19)
[2023-07-24] MEDS ORDERED: P-EPHED 60MG/TRIPROLIDI 2.5MG TABLET PO PRN (19:19)
[2023-07-24] MEDS ORDERED: ACETAMINOPHEN 325 MG TABLET (FP) PO PRN (19:19)
[2023-07-24] MEDS ORDERED: BENZOCAINE/MENTHOL (CHLORASEPTIC ) LOZENGE MM PRN (19:19)
[2023-07-24] MEDS ORDERED: BENZONATATE 200 MG CAPSULE PO PRN (19:19)
[2023-07-24] MEDS ORDERED: IBUPROFEN 400 MG TABLET (FP) PO PRN (19:19)
[2023-07-24] MEDS ORDERED: LOPERAMIDE HCL 2 MG CAPSULE PO PRN (19:19)
[2023-07-24] MEDS ORDERED: MAGNESIUM HYDROX 2400MG/30ML ORAL SUSPENSION 30 ML CUP PO PRN (19:19)
[2023-07-24] MEDS ORDERED: DOCUSATE SODIUM 100 MG CAPSULE (FP) PO PRN (19:19)
[2023-07-24] MEDS: THIAMINE HCL 100 MG TABLET (FP) PO SCH (21:19)
[2023-07-24] MEDS: MELATONIN 5 MG TABLETS PO SCH (21:19)
[2023-07-24] MEDS: NICOTINE POLACRILEX 2 MG GUM BUC PRN (21:20)
[2023-07-24] MEDS: MIRTAZAPINE 15 MG TABLET (FP) PO ONE (21:20)
[2023-07-25] MEDS: PRENATAL VITAMINS W/ FOLIC ACID TABLET (FP) PO SCH (10:17)
[2023-07-25 12:11] LABS: URINE APPEARANCE CLEAR; URINE BILIRUBIN NEGATIVE (NEGATIVE); URINE COLOR YELLOW; URINE GLUCOSE (UA) NEGATIVE (NEGATIVE); URINE KETONE NEGATIVE (NEGATIVE); URINE LEUK ESTERASE NEGATIVE (NEGATIVE); URINE NITRITE NEGATIVE (NEGATIVE); URINE PROTEIN NEGATIVE (NEGATIVE); URINE UROBILINOGEN 0.2 mg/dL (0.2-1.0)
[2023-07-25 12:11] LABS: HEMATOCRIT 37.4 % (35.4-49); HEMOGLOBIN 13.1 GM/dL (11.7-16.9); MCH 30.8 pg (25.7-33.7); MCHC 34.9 g/dl (32.0-35.9); MEAN CELL VOLUME 88.4 fl (80-96); MEAN PLT VOLUME 8.6 fl (7.5-11.1); PLATELET COUNT 274 10^3/uL (134-434); RBC 4.24 M/mm3 (4.00-5.60); WHITE BLOOD COUNT 6.5 K/mm3 (4.0-10.0)
[2023-07-25] MEDS: ARIPiprazole 5 MG TABLET PO SCH (12:11)
[2023-07-25 12:33] LABS: POTASSIUM 3.8 mmol/L (3.5-5.1)
[2023-07-25 12:39] LABS: ALBUMIN 3.4 g/dl (3.4-5.0); BLOOD UREA NITROGEN 17.6 mg/dL (7-18)
[2023-07-25 12:43] LABS: CREATININE 1.1 mg/dL (0.55-1.3); TOT PROT 6.3 g/dl (6.4-8.2)
[2023-07-25 12:45] LABS: BILIRUBIN,TOTAL 0.3 mg/dL (0.2-1)
[2023-07-25] MEDS: IBUPROFEN 600 MG TABLET (FP) PO PRN (16:28)
[2023-07-25 18:37] VITALS: BP 122/81; PULSE 70; RESP 18; TEMP 97.5
[2023-07-25] MEDS ORDERED: METHOCARBAMOL 750 MG TABLET PO PRN (18:39)
[2023-07-25] MEDS: METHOCARBAMOL 500 MG TABLET PO PRN (18:48)
[2023-07-25] MEDS: LIDOCAINE 5% TOPICAL PATCH TP SCH (18:48)
[2023-07-25] MEDS: LIDOCAINE PATCH REMOVAL MC SCH (21:21)
[2023-07-25] MEDS: SUVOREXANT 10 MG TABLET PO PRN (21:21)
[2023-07-25] MEDS: MIRTAZAPINE 15 MG TABLET (FP) PO SCH (21:21)
== END 2023-07-25 22:33 | disposition left against medical advice (07) | DRG 770 ==
LOC: YASAS 15:33 → Y3W 20:24
PROVIDERS: ADMIT Allergy & Immunology; ATTEND Psychiatry & Neurology Pain Medicine
PROC: HZ42ZZZ Group Counseling for Substance Abuse Treatment, Cognitive-Behavioral (ICD-10-PCS; principal; 2023-07-24)
DX: F14.10 Cocaine abuse, uncomplicated (principal); F12.20 Cannabis dependence, uncomplicated; F17.210 Nicotine dependence, cigarettes, uncomplicated; F19.282 Other psychoactive substance dependence with psychoactive substance-induced sleep disorder; F19.24 Other psychoactive substance dependence with psychoactive substance-induced mood disorder; F39 Unspecified mood [affective] disorder; M54.50 Low back pain, unspecified; G89.29 Other chronic pain; Z86.59 Personal history of other mental and behavioral disorders
CPT/HCPCS: 36415; 80053; 80305; 81003; 85027; 86780; 87635; 87811; 93005; 93010

== ENCOUNTER 2023-10-01 14:49 | Inpatient (IN) | payer OTHER ==
[2023-10-01 16:00] VITALS: BMI 32.0
[2023-10-01] MEDS ORDERED: DOCUSATE SODIUM 100 MG CAPSULE (FP) PO PRN (16:10)
[2023-10-01] MEDS ORDERED: guaiFENesin 600 MG TABLET.ER (FP) PO PRN (16:10)
[2023-10-01] MEDS ORDERED: POLYETHYLENE GLYCOL (HEALTHYLAX) 3350 17 GM PACKET PO PRN (16:10)
[2023-10-01] MEDS ORDERED: NALOXONE HCL (KLOXXADO) 8 MG SPRAY NS PRN (16:10)
[2023-10-01] MEDS ORDERED: NALOXONE HCL 0.4 MG/ML VIAL IM PRN (16:10)
[2023-10-01] MEDS ORDERED: IBUPROFEN 600 MG TABLET (FP) PO PRN (16:10)
[2023-10-01] MEDS ORDERED: MAGNESIUM HYDROX 2400MG/30ML ORAL SUSPENSION 30 ML CUP PO PRN (16:10)
[2023-10-01] MEDS ORDERED: BENZONATATE 200 MG CAPSULE PO PRN (16:10)
[2023-10-01] MEDS ORDERED: IBUPROFEN 400 MG TABLET (FP) PO PRN (16:10)
[2023-10-01] MEDS ORDERED: BENZOCAINE/MENTHOL (CHLORASEPTIC ) LOZENGE MM PRN (16:10)
[2023-10-01] MEDS: hydrOXYzine PAMOATE 25 MG CAPSULE (FP) PO PRN (21:35)
[2023-10-01] MEDS: THIAMINE 100 MG TABLET PO SCH (21:35)
[2023-10-01] MEDS: MELATONIN 5 MG TABLETS PO SCH (21:35)
[2023-10-02] MEDS: PRENATAL VITAMINS W/ FOLIC ACID TABLET (FP) PO SCH (10:02)
[2023-10-02 12:08] LABS: CHLORIDE 108 mmol/L (98-107); POTASSIUM 3.8 mmol/L (3.5-5.1); SODIUM 139 mmol/L (136-145)
[2023-10-02 12:14] LABS: HEMATOCRIT 43.8 % (35.4-49); HEMOGLOBIN 14.7 GM/dL (11.7-16.9); MCH 30.1 pg (25.7-33.7); MCHC 33.6 g/dl (32.0-35.9); MEAN CELL VOLUME 89.7 fl (80-96); MEAN PLT VOLUME 8.3 fl (7.5-11.1); PLATELET COUNT 332 10^3/uL (134-434); RBC 4.88 M/mm3 (4.00-5.60); RDW 13.9 % (11.9-15.9)
[2023-10-02 12:20] LABS: CALCIUM 9.6 mg/dL (8.5-10.1); SGPT/ALT 20 U/L (13-61)
[2023-10-02 12:21] LABS: ANION GAP 4 mmol/L (4-13); BLOOD UREA NITROGEN 19.5 mg/dL (7-18); CO2 27 mmol/L (21-32)
[2023-10-02 12:22] LABS: ALBUMIN 3.9 g/dl (3.4-5.0); BILIRUBIN,TOTAL 0.5 mg/dL (0.2-1); GLUCOSE,RANDOM 88 mg/dL (74-106)
[2023-10-02 12:24] LABS: SGOT/AST 17 U/L (15-37)
[2023-10-02 12:25] LABS: CREATININE 1.1 mg/dL (0.55-1.3)
[2023-10-02 12:26] LABS: TOT PROT 7.1 g/dl (6.4-8.2)
[2023-10-02 12:28] LABS: ALK PHOS 82 U/L (45-117)
[2023-10-02] MEDS: NICOTINE POLACRILEX 2 MG GUM BUC PRN (15:54)
[2023-10-03] MEDS: MIRTAZAPINE 15 MG TABLET (FP) PO SCH (21:24)
[2023-10-04] MEDS: MAG HYDROX/AL HYDROX/SIMETH 30 ML UNIT-DOSE CUP PO PRN (19:45)
[2023-10-05] MEDS: LOPERAMIDE HCL 2 MG CAPSULE PO PRN (20:29)
[2023-10-07] MEDS: DICYCLOMINE HCL 10 MG CAPSULE PO ONE (11:21)
[2023-10-07] MEDS: DIPHENOXYLATE 2.5/ATROPINE.025 1 COMBO TABLET PO ONE (11:21)
[2023-10-09] MEDS: SUVOREXANT 10 MG TABLET PO SCH (21:49)
[2023-10-09] MEDS: ACETAMINOPHEN 325 MG TABLET (FP) PO PRN (23:40)
[2023-10-09] MEDS: NICOTINE POLACRILEX 2 MG LOZENGE BC PRN (23:42)
[2023-10-10] MEDS: SUVOREXANT 5 MG TABLET PO SCH (21:31)
[2023-10-12] MEDS: SUVOREXANT 10 MG TABLET PO PRN (21:24)
[2023-10-15 06:59] VITALS: BP 135/68; PULSE 67; RESP 16; TEMP 96.8
[2023-10-15] MEDS ORDERED: MIRTAZAPINE 15 MG TABLET (FP) PO SCH (22:00)
== END 2023-10-15 09:40 | disposition home or self-care (01) | DRG 772 ==
LOC: YASAS 14:49 → Y3NR 16:23 → Y5N 10-02 13:03
PROVIDERS: ADMIT Allergy & Immunology; ATTEND Psychiatry & Neurology Pain Medicine
PROC: HZ42ZZZ Group Counseling for Substance Abuse Treatment, Cognitive-Behavioral (ICD-10-PCS; principal; 2023-10-01)
DX: F14.20 Cocaine dependence, uncomplicated (principal); F10.10 Alcohol abuse, uncomplicated; F12.20 Cannabis dependence, uncomplicated; F17.210 Nicotine dependence, cigarettes, uncomplicated; F19.282 Other psychoactive substance dependence with psychoactive substance-induced sleep disorder; F20.9 Schizophrenia, unspecified; F19.24 Other psychoactive substance dependence with psychoactive substance-induced mood disorder; F39 Unspecified mood [affective] disorder; F43.10 Post-traumatic stress disorder, unspecified; G47.00 Insomnia, unspecified
CPT/HCPCS: 36415; 80053; 80305; 80307; 85027; 86780; 87811; 93005; 93010